=== PATIENT | female | born 1955 | race Hispanic/Latino ===

== ENCOUNTER → 2022-06-20 | Outpatient (CLI) | payer MEDICARE | END | disposition home or self-care (01) | LOC: SHCH 12:54 | PROVIDERS: ATTEND Internal Medicine Cardiovascular Disease | DX: I51.7 Cardiomegaly (principal); I48.0 Paroxysmal atrial fibrillation; I48.91 Unspecified atrial fibrillation | CPT/HCPCS: 93306 ==

== ENCOUNTER 2022-08-13 07:09 | Day surgery (SDC) | payer MEDICARE ==
[2022-08-11 10:11] LABS: HEMATOCRIT 35.8 % (36-48); MEAN CORPUSCULAR HEMOGLOBIN 31.5 pg (27.0-33.0); MEAN CORPUSCULAR HGB CONC 32.7 g/dL (32.0-36.0); MEAN CORPUSCULAR VOLUME 96.5 fL (79-99); RED BLOOD CELL COUNT(AUTO) 3.71 MIL/uL (4.00-5.50); RED CELL DISTRIBUTION WIDTH 12.6 % (11.0-15.5); WHITE BLOOD COUNT (AUTO) 7.4 K/uL (4.8-10.8)
[2022-08-11 10:18] LABS: CREATININE 0.6 mg/dL (0.5-1.5); POTASSIUM 3.6 mmol/L (3.5-5.1)
[2022-08-12 12:26] VITALS: BP 162/91
[~2022-08-13] VITALS: Ht 157.5 cm; Wt 99.5 kg
[~2022-08-13 07:09] MED LIST: AMIO200T68 PO; ATOR10TA69 PO; HYDR25TA PO; LEVO88CA4 PO; RIVA20TA PO
[2022-08-13 07:35] VITALS: BP 134/78
[2022-08-13] MEDS ORDERED: 0.9%NACL 1000ML 1,000 ML IV ONE (07:37)
[2022-08-13] MEDS ORDERED: IPRATROPIUM/ALBUTEROL SULFATE 3 ML SOLUTION IH SCH (09:00)
[2022-08-13] MEDS ORDERED: PROPOFOL 10 MG/ML 20ML VIAL IV ONE (09:03)
[2022-08-13] MEDS ORDERED: METO100T14 PO (13:28)
[2022-08-18] MEDS ORDERED: PRED20TA3 PO (17:57)
[2022-08-18] MEDS ORDERED: ALBUHFA IH (17:57)
[2022-08-18] MEDS ORDERED: FLUT1BLS IH (17:57)
[2022-08-18] MEDS ORDERED: AMOX-426 PO (17:57)
[2022-08-18] MEDS ORDERED: BENZ-39 PO (18:17)
[2022-08-18] MEDS ORDERED: GUAI600T50 PO (18:17)
== END 2022-08-13 10:30 | disposition home or self-care (01) ==
LOC: CLH 07:09 → DAH 07:09 → CLH 10:30
PROVIDERS: ATTEND Internal Medicine Cardiovascular Disease
DX: I48.11 Longstanding persistent atrial fibrillation (principal); Z20.822 Contact with and (suspected) exposure to COVID-19; I10 Essential (primary) hypertension; E03.9 Hypothyroidism, unspecified; E66.01 Morbid (severe) obesity due to excess calories; I87.2 Venous insufficiency (chronic) (peripheral); E78.5 Hyperlipidemia, unspecified; M19.90 Unspecified osteoarthritis, unspecified site; Z79.890 Hormone replacement therapy; Z79.899 Other long term (current) drug therapy; Z90.710 Acquired absence of both cervix and uterus; Z82.49 Family history of ischemic heart disease and other diseases of the circulatory system; Z79.01 Long term (current) use of anticoagulants; Z68.41 Body mass index [BMI] 40.0-44.9, adult
CPT/HCPCS: 80048; 85027; 87426; 36415; 92960; 93005 ×2; 94640; A4223 ×3; J7030 ×2; J2704; A4215; A7002; A4222; A4221; A4663; A4216; A4606

== ENCOUNTER → 2022-11-19 | Outpatient (CLI) | payer MEDICARE ==
[~2022-11-19] MED LIST changes: +ALBUHFA IH; -AMIO200T68 PO; +ASCO500T20 PO; +BIOT5000 PO; +CHOL500051 PO; +LORA10TA7 PO; +METO100T14 PO; +TRAM50TA4 PO
== END | disposition home or self-care (01) ==
LOC: SHCH 08:39
PROVIDERS: ATTEND Internal Medicine Cardiovascular Disease
DX: I87.2 Venous insufficiency (chronic) (peripheral) (principal)
CPT/HCPCS: 93970

== ENCOUNTER → 2022-12-10 | Outpatient (CLI) | payer MEDICARE ==
[2022-12-10 16:24] LABS: BASOPHILS % (AUTO) 0.6 % (0.0-5.0); EOSINOPHILS % (AUTO) 5.2 % (0.0-8.0); HEMATOCRIT 35.6 % (36-48); LYMPHOCYTES % (AUTO) 22.1 % (21.0-51.0); MEAN CORPUSCULAR HEMOGLOBIN 31.8 pg (27.0-33.0); MEAN CORPUSCULAR HGB CONC 32.3 g/dL (32.0-36.0); MEAN CORPUSCULAR VOLUME 98.3 fL (79-99); MONOCYTES % (AUTO) 9.3 % (3.0-13.0); NEUTROPHILS % (AUTO) 62.4 % (40.0-77.0); PLATELET COUNT (AUTO) 202 K/uL (130-400); RED BLOOD CELL COUNT(AUTO) 3.62 MIL/uL (4.00-5.50); RED CELL DISTRIBUTION WIDTH 13.4 % (11.0-15.5); WHITE BLOOD COUNT (AUTO) 5.4 K/uL (4.8-10.8)
[2022-12-10 16:36] LABS: INR 1.23 (0.85-1.15); PROTHROMBIN TIME 13.3 SEC (9.6-11.6)
[2022-12-10 16:38] LABS: PARTIAL THROMBOPLASTIN TIME 36.2 SEC (26.3-35.5)
[2022-12-10 16:40] LABS: CREATININE 0.8 mg/dL (0.5-1.5); POTASSIUM 4.6 mmol/L (3.5-5.1)
== END | disposition home or self-care (01) ==
LOC: LAB 13:10
PROVIDERS: ATTEND Internal Medicine Cardiovascular Disease
DX: I87.2 Venous insufficiency (chronic) (peripheral) (principal); I10 Essential (primary) hypertension; I48.21 Permanent atrial fibrillation; E78.5 Hyperlipidemia, unspecified; E66.01 Morbid (severe) obesity due to excess calories; Z68.41 Body mass index [BMI] 40.0-44.9, adult; Z79.01 Long term (current) use of anticoagulants
CPT/HCPCS: 36415; 80048; 85025; 85610; 85730

== ENCOUNTER → 2023-03-02 | Outpatient (CLI) | payer MEDICARE | END | disposition home or self-care (01) | LOC: SHCH 12:26 | PROVIDERS: ATTEND Internal Medicine Cardiovascular Disease | DX: I87.2 Venous insufficiency (chronic) (peripheral) (principal); Z98.890 Other specified postprocedural states | CPT/HCPCS: 93971 ==

== ENCOUNTER → 2023-03-23 | Outpatient (CLI) | payer MEDICARE | END | disposition home or self-care (01) | LOC: SHCH 09:13 | PROVIDERS: ATTEND Internal Medicine Cardiovascular Disease | DX: I87.2 Venous insufficiency (chronic) (peripheral) (principal); Z98.890 Other specified postprocedural states | CPT/HCPCS: 93971 ==

== ENCOUNTER → 2023-06-02 | Outpatient (CLI) | payer MEDICARE ==
[~2023-06-02] MED LIST changes: +REGADENOSON 0.4 MG/5 ML PF SYG IVP ONE
== END | disposition home or self-care (01) ==
LOC: SHCH 07:55
PROVIDERS: ATTEND Internal Medicine Cardiovascular Disease
DX: R06.02 Shortness of breath (principal); I48.91 Unspecified atrial fibrillation
CPT/HCPCS: 78452; 96374; 93017; J2785; A9500 ×2

== ENCOUNTER 2023-12-07 10:46 | Emergency (ER) | payer MEDICARE ==
[~2023-12-07] VITALS: Ht 152.4 cm; Wt 103.0 kg
[~2023-12-07 10:46] MED LIST changes: -BIOT5000 PO; +DIGO0.12 PO; +FAMO20TA8 PO; +POTA20PA32 PO; +PRED10TA23 PO; +RANO500T6 PO; -REGADENOSON 0.4 MG/5 ML PF SYG IVP ONE
[2023-12-07 10:48] VITALS: BP 107/62; PULSE 92; RESP 16
[2023-12-07] MEDS: FAMOTIDINE 20MG TAB PO ONE (11:15)
[2023-12-07] MEDS: DEXAMETHASONE SOD PHOSPHATE 4 MG/ML 1ML VIAL IM ONE (11:15)
[2023-12-07] MEDS: DIPHENHYDRAMINE HCL 25 MG CAPSULE PO ONE (11:15)
[2023-12-07] MEDS ORDERED: METH4TAB3 PO (11:53)
[2023-12-07] MEDS ORDERED: DIPH50CA37 PO (11:53)
== END 2023-12-07 12:12 | disposition home or self-care (01) ==
LOC: EDH 10:46
DX: T78.40XA Allergy, unspecified, initial encounter (principal); R21 Rash and other nonspecific skin eruption; E78.00 Pure hypercholesterolemia, unspecified; I11.0 Hypertensive heart disease with heart failure; I50.9 Heart failure, unspecified; M19.90 Unspecified osteoarthritis, unspecified site; Z79.52 Long term (current) use of systemic steroids; Z79.890 Hormone replacement therapy; Z79.899 Other long term (current) drug therapy; Z90.710 Acquired absence of both cervix and uterus
CPT/HCPCS: 99283; 96372; J1100; Q0163

== ENCOUNTER → 2023-12-22 | Outpatient (CLI) | payer MEDICARE ==
[~2023-12-22] MED LIST changes: +DIPH50CA37 PO; +METH4TAB3 PO
[2023-12-22 16:36] LABS: ALBUMIN 3.2 g/dL (3.5-5.0); BILIRUBIN,TOTAL 0.9 mg/dL (0.2-1.0); CREATININE 0.6 mg/dL (0.5-1.5); DIGOXIN 0.98 ng/mL (0.50-2.00); TOTAL PROTEIN, SERUM 6.6 g/dL (6.0-8.3)
== END | disposition home or self-care (01) ==
LOC: LAB 12:47
PROVIDERS: ATTEND Internal Medicine Cardiovascular Disease
DX: E78.5 Hyperlipidemia, unspecified (principal); I48.0 Paroxysmal atrial fibrillation; I20.0 Unstable angina
CPT/HCPCS: 36415; 80053; 80061; 80162

== ENCOUNTER 2024-01-05 08:48 | Day surgery (SDC) | payer MEDICARE ==
[2024-01-05] VITALS (12 sets, daily range): BP systolic 98–136; BP diastolic 60–89; PULSE 80–93; RESP 18–24
[~2024-01-05] VITALS: Ht 152.4 cm; Wt 103.0 kg
[~2024-01-05 08:48] MED LIST changes: -ALBUHFA IH; +BIOT5000 PO; +DIGO125T71 PO; -DIPH50CA37 PO; -FAMO20TA8 PO; +FLUT1BLS3 IH; +FURO20TA4 PO; -HYDR25TA PO; -METH4TAB3 PO; +POTA-79 PO; -POTA20PA32 PO; -PRED10TA23 PO; +RANO500T2 PO
[2024-01-05] MEDS: 0.9%NACL 1000ML 1,000 ML IV ONE (10:06)
[2024-01-05] MEDS ORDERED: LIDOCAINE HCL 1% 20 ML VIAL ONE (11:02)
[2024-01-05] MEDS ORDERED: PROPOFOL 10 MG/ML 20ML VIAL IV ONE ×2 (11:02)
== END 2024-01-05 13:00 | disposition home or self-care (01) ==
LOC: DAH 08:48 → ENDO 08:48
PROVIDERS: ATTEND Internal Medicine Gastroenterology
DX: Z09 Encounter for follow-up examination after completed treatment for conditions other than malignant neoplasm (principal); Z13.810 Encounter for screening for upper gastrointestinal disorder; R10.13 Epigastric pain; K74.69 Other cirrhosis of liver; I85.10 Secondary esophageal varices without bleeding; K57.30 Diverticulosis of large intestine without perforation or abscess without bleeding; K31.89 Other diseases of stomach and duodenum; K64.1 Second degree hemorrhoids; D64.9 Anemia, unspecified; K64.4 Residual hemorrhoidal skin tags; K56.2 Volvulus; K63.89 Other specified diseases of intestine; K29.50 Unspecified chronic gastritis without bleeding; K80.20 Calculus of gallbladder without cholecystitis without obstruction; I10 Essential (primary) hypertension; E11.9 Type 2 diabetes mellitus without complications; E66.9 Obesity, unspecified; M19.90 Unspecified osteoarthritis, unspecified site; Z79.01 Long term (current) use of anticoagulants; Z79.899 Other long term (current) drug therapy; Z86.010 Personal history of colon polyps; Z68.41 Body mass index [BMI] 40.0-44.9, adult
CPT/HCPCS: 43239; 45378; J7030 ×2; J2704 ×2; A4620; A4215 ×2; A4223; A7002; A4222; A4221; A4663; A4606; J3490

== ENCOUNTER → 2024-05-19 | Outpatient (CLI) | payer MEDICARE ==
[~2024-05-19] MED LIST changes: +POTA-364 PO; -POTA-79 PO
== END | disposition home or self-care (01) ==
LOC: SHCH 09:17
PROVIDERS: ATTEND Internal Medicine Cardiovascular Disease
DX: I87.2 Venous insufficiency (chronic) (peripheral) (principal); I87.1 Compression of vein; I73.9 Peripheral vascular disease, unspecified
CPT/HCPCS: 93925; 93970

== ENCOUNTER → 2024-07-26 | Outpatient (CLI) | payer MEDICARE ==
[2024-07-26 12:01] LABS: BASOPHILS # (AUTO) 0.04 K/uL (0.00-0.20); BASOPHILS % (AUTO) 0.6 % (0.0-5.0); EOSINOPHILS # (AUTO) 0.33 K/uL (0.00-0.70); EOSINOPHILS % (AUTO) 4.7 % (0.0-8.0); HEMATOCRIT 36.9 % (36-48); IMMATURE GRANULOCYTE ABSOLUTE 0.08 K/uL (0-1); LYMPHOCYTES # (AUTO) 1.4 K/uL (1.0-4.8); LYMPHOCYTES % (AUTO) 19.2 % (21.0-51.0); MEAN CORPUSCULAR HGB CONC 32.8 g/dL (32.0-36.0); MEAN CORPUSCULAR VOLUME 97.6 fL (79-99); MONOCYTES # (AUTO) 0.6 K/uL (0.1-1.0); MONOCYTES % (AUTO) 7.8 % (3.0-13.0); NEUTROPHILS # (AUTO) 4.7 K/uL (1.8-7.7); NEUTROPHILS % (AUTO) 66.6 % (40.0-77.0); PLATELET COUNT (AUTO) 218 K/uL (130-400); RED BLOOD CELL COUNT(AUTO) 3.78 MIL/uL (4.00-5.50); RED CELL DISTRIBUTION WIDTH 13.1 % (11.0-15.5)
[2024-07-26 12:07] LABS: CREATININE 0.7 mg/dL (0.5-1.0); POTASSIUM 4.1 mmol/L (3.5-5.1)
[2024-07-26 12:18] LABS: INR 1.37 (0.85-1.15); PROTHROMBIN TIME 14.5 SEC (9.6-11.6)
[2024-07-26 12:20] LABS: PARTIAL THROMBOPLASTIN TIME 38.5 SEC (26.3-35.5)
== END | disposition home or self-care (01) ==
LOC: LAB 10:32
PROVIDERS: ATTEND Internal Medicine Cardiovascular Disease
DX: Z01.812 Encounter for preprocedural laboratory examination (principal); I87.1 Compression of vein; I87.2 Venous insufficiency (chronic) (peripheral); I50.9 Heart failure, unspecified
CPT/HCPCS: 36415; 80048; 85025; 85610; 85730

== ENCOUNTER → 2024-07-28 | Outpatient (CLI) | payer MEDICARE | END | disposition home or self-care (01) | LOC: RAH 12:28 | PROVIDERS: ATTEND Family Medicine | DX: J44.9 Chronic obstructive pulmonary disease, unspecified (principal); J84.89 Other specified interstitial pulmonary diseases; I51.7 Cardiomegaly | CPT/HCPCS: 71046 ==

== ENCOUNTER → 2024-10-25 | Outpatient (CLI) | payer MEDICARE ==
[2024-10-25 16:48] LABS: BASOPHILS # (AUTO) 0.03 K/uL (0.00-0.20); BASOPHILS % (AUTO) 0.3 % (0.0-5.0); EOSINOPHILS # (AUTO) 0.18 K/uL (0.00-0.70); EOSINOPHILS % (AUTO) 2.1 % (0.0-8.0); HEMATOCRIT 38.2 % (36-48); IMMATURE GRANULOCYTE ABSOLUTE 0.06 K/uL (0-1); LYMPHOCYTES # (AUTO) 1.6 K/uL (1.0-4.8); LYMPHOCYTES % (AUTO) 18.7 % (21.0-51.0); MEAN CORPUSCULAR HEMOGLOBIN 32.6 pg (27.0-33.0); MEAN CORPUSCULAR HGB CONC 32.5 g/dL (32.0-36.0); MEAN CORPUSCULAR VOLUME 100.5 fL (79-99); MONOCYTES # (AUTO) 0.5 K/uL (0.1-1.0); MONOCYTES % (AUTO) 6.1 % (3.0-13.0); NEUTROPHILS # (AUTO) 6.3 K/uL (1.8-7.7); NEUTROPHILS % (AUTO) 72.1 % (40.0-77.0); PLATELET COUNT (AUTO) 192 K/uL (130-400); RED CELL DISTRIBUTION WIDTH 13.1 % (11.0-15.5); WHITE BLOOD COUNT (AUTO) 8.8 K/uL (4.8-10.8)
[2024-10-25 17:03] LABS: INR 1.17 (0.85-1.15); PROTHROMBIN TIME 12.9 SEC (9.6-11.6)
[2024-10-25 17:04] LABS: PARTIAL THROMBOPLASTIN TIME 33.1 SEC (26.3-35.5)
[2024-10-25 17:11] LABS: CREATININE 0.7 mg/dL (0.5-1.0); POTASSIUM 4.5 mmol/L (3.5-5.1)
== END | disposition home or self-care (01) ==
LOC: LAB 11:58
PROVIDERS: ATTEND Internal Medicine Cardiovascular Disease
DX: Z01.812 Encounter for preprocedural laboratory examination (principal); I87.1 Compression of vein; I87.2 Venous insufficiency (chronic) (peripheral); I48.91 Unspecified atrial fibrillation
CPT/HCPCS: 36415; 80048; 85025; 85610; 85730

== ENCOUNTER → 2025-02-08 | Outpatient (CLI) | payer MEDICARE ==
[~2025-02-08] MED LIST changes: -LEVO88CA4 PO; +LEVO88CA5 PO
== END | disposition home or self-care (01) ==
LOC: SHCH 12:17
PROVIDERS: ATTEND Internal Medicine Cardiovascular Disease
DX: I87.2 Venous insufficiency (chronic) (peripheral) (principal); I87.1 Compression of vein
CPT/HCPCS: 93970

== ENCOUNTER → 2025-05-24 | Outpatient (CLI) | payer OTHER, MEDICAID | END | disposition home or self-care (01) | LOC: RAH 07:59 | PROVIDERS: ATTEND Family Medicine | DX: Z12.31 Encounter for screening mammogram for malignant neoplasm of breast (principal) | CPT/HCPCS: 77067 ==

== ENCOUNTER 2025-08-22 08:12 | Day surgery (SDC) | payer OTHER, MEDICAID ==
[~2025-08-22] VITALS: Ht 152.4 cm; Wt 98.0 kg
[2025-08-22] VITALS (9 sets, daily range): BP systolic 115–146; BP diastolic 64–94; PULSE 61–88; RESP 14–18; TEMP 97.2–98.1
[2025-08-22] MEDS ORDERED: METO100T14 PO (08:37)
[2025-08-22] MEDS ORDERED: ALBU18HF7 IH (08:37)
[2025-08-22] MEDS ORDERED: MONT-39 PO (08:43)
[2025-08-22] MEDS ORDERED: ERYT1OIN7 OU (08:43)
[2025-08-22] MEDS ORDERED: ESOM40CA66 PO (08:43)
[2025-08-22] MEDS ORDERED: TRAMADOL 50MG PO (08:43)
[2025-08-22] MEDS ORDERED: FAMO40TA7 PO (08:43)
[2025-08-22] MEDS: 0.9%NACL 1000ML 1,000 ML IV ONE (08:47)
[2025-08-22] MEDS ORDERED: LIDOCAINE HCL 1% 20 ML VIAL ONE (09:57)
--- NOTE | 2025-08-22 11:43 | NUR ---
Full and complete discharge instructions given to Patient and Family both verbally and in writing. Tolerated fluids and voided in bathroom. PIV removed with catheter tip intact. W/C to POV with Family to home.
== END 2025-08-22 11:30 | disposition home or self-care (01) ==
LOC: ENDO 08:12 → DAH 08:12 → ENDO 11:30
PROVIDERS: ATTEND Internal Medicine Gastroenterology
DX: R10.13 Epigastric pain (principal); K31.89 Other diseases of stomach and duodenum; K29.70 Gastritis, unspecified, without bleeding; K74.60 Unspecified cirrhosis of liver; I85.10 Secondary esophageal varices without bleeding; E78.00 Pure hypercholesterolemia, unspecified; M19.90 Unspecified osteoarthritis, unspecified site; I50.9 Heart failure, unspecified; I48.91 Unspecified atrial fibrillation; K76.9 Liver disease, unspecified; R93.3 Abnormal findings on diagnostic imaging of other parts of digestive tract; R93.2 Abnormal findings on diagnostic imaging of liver and biliary tract; K57.30 Diverticulosis of large intestine without perforation or abscess without bleeding; K59.04 Chronic idiopathic constipation; I11.0 Hypertensive heart disease with heart failure; E78.5 Hyperlipidemia, unspecified; E11.9 Type 2 diabetes mellitus without complications; R93.421 Abnormal radiologic findings on diagnostic imaging of right kidney; Z86.0100 Personal history of colon polyps, unspecified; Z90.710 Acquired absence of both cervix and uterus; Z79.01 Long term (current) use of anticoagulants; Z79.899 Other long term (current) drug therapy
CPT/HCPCS: 43239; J7030 ×2; J2704; A4620; A4215 ×2; A4223; A4657; A7002; A4222; A4221; A4663; A4606; J3490

== ENCOUNTER 2025-10-07 08:43 | Emergency (ER) | payer OTHER, MEDICAID ==
[~2025-10-07] VITALS: Ht 154.9 cm; Wt 97.1 kg
[~2025-10-07 08:43] MED LIST changes: +ALBU18HF7 IH; -ASCO500T20 PO; -BIOT5000 PO; -CHOL500051 PO; -DIGO0.12 PO; +ERYT1OIN7 OU; +ESOM40CA66 PO; +FAMO40TA7 PO; -LORA10TA7 PO; +MONT-39 PO; -POTA-364 PO; -RANO500T6 PO; -TRAM50TA4 PO; +TRAMADOL 50MG PO
--- NOTE | 2025-10-07 11:18 | HMCIMG ---
EXAM: CR right Humerus, 2 View. CLINICAL HISTORY: Injury COMPARISON: None provided. FINDINGS: BONES: No acute fracture or aggressive appearing osseous lesion. JOINTS: No dislocation. The joint spaces are normal. SOFT TISSUES: The soft tissues are unremarkable. IMPRESSION: No acute osseous abnormality. /[place]
--- NOTE | 2025-10-07 11:18 | HMCIMG ---
STUDY: CR Right Forearm, 2 Views HISTORY: Injury TECHNIQUE: Anteroposterior and lateral radiographs of the right forearm obtained. COMPARISON: None provided. FINDINGS: BONES: Radius and ulna are intact. No acute fracture or aggressive appearing osseous lesion identified. JOINTS: Elbow and wrist joint alignments are maintained. No dislocation. Joint spaces are preserved. SOFT TISSUES: Soft tissue swelling is noted along the dorsal aspect of the mid forearm. No soft tissue gas or radiopaque foreign body identified. IMPRESSION: * No acute fracture or dislocation of the right forearm. * Dorsal mid-forearm soft tissue swelling, likely post-traumatic in the given clinical context. /[place]
--- NOTE | 2025-10-07 11:20 | HMCIMG ---
EXAM: CR right Shoulder, 3 View. CLINICAL HISTORY: Injury COMPARISON: None provided. FINDINGS: BONES: No acute fracture or aggressive appearing osseous lesion. JOINTS: No dislocation. The joint spaces are normal. SOFT TISSUES: The soft tissues are unremarkable. IMPRESSION: No acute abnormality evident on examination of the right shoulder. No acute fracture or dislocation. /[place]
--- NOTE | 2025-10-07 11:30 | ERN ---
General Chief Complaint: Upper Extremity Pain/Injury Stated Complaint: RIGHT ARM PAIN Time Seen by MD: 09:15 History of Present Illness Initial Comments 69-year-old female came in for fall that happened couple of days ago in his has been having pain to her right shoulder along with the right forearm. Patient otherwise denies head trauma loss of consciousness able to ambulate without any concerns. Allergies: Coded Allergies: latex (Unverified Allergy, Unknown, 08/12/22) Home Meds Reported Medications Esomeprazole Magnesium (Esomeprazole Magnesium) 40 Mg Capsule.dr, 1 CAP PO DAILY for 30 Days, #30 CAP 0 Refills 08/22/25 Montelukast Sodium (Montelukast Sodium) 10 Mg Tablet, 1 TAB PO DAILY for 30 Days, #30 TAB 0 Refills 08/22/25 Famotidine (Famotidine) 40 Mg Tablet, 1 TAB PO DAILY for 30 Days, #30 TAB 0 Refills 08/22/25 [Tramadol 50MG] No Conflict Check, 1 TAB PO AM 08/22/25 Erythromycin Base (Erythromycin) 5 Mg/Gram (0.5 %) Oint...g., 1 APPL OU HS, GM 0 Refills apply 1 cm ribbon into the lower conjunctival sac 08/22/25 Albuterol Sulfate (Ventolin Hfa) 90 Mcg Hfa.aer.ad, 2 PUFF IH Q4HPRN PRN for wheezing for 30 Days, #18 GM 0 Refills 08/22/25 Metoprolol Tartrate (Metoprolol Tartrate) 100 Mg Tablet, 1.5 TAB PO BID for 30 Days, #60 TAB 0 Refills 08/22/25 Furosemide (Furosemide) 20 Mg Tablet, 20 MG PO BID, TAB 01/04/24 Digoxin (Digoxin) 125 Mcg (0.125 Mg) Tablet, 125 MCG PO AM, TAB 01/04/24 Ranolazine (RANEXA) 500 Mg Tab.er.12h, 500 MG PO BID, TAB 01/04/24 Fluticasone/Umeclidin/Vilanter (Trelegy Ellipta 100-62.5-25) 100-62.5 Blst.w.dev, 1 EACH IH DAILY 01/04/24 Atorvastatin Calcium (Atorvastatin Calcium) 10 Mg Tablet, 10 MG PO HS, TAB 08/12/22 Rivaroxaban (Xarelto) 20 Mg Tablet, 20 MG PO DAILYDINNER, TAB 08/12/22 Levothyroxine Sodium (Levothyroxine) 88 Mcg Capsule, 88 MCG PO DAILY, CAP 08/12/22 Past Medical History Past Medical History: Angina, Arthritis, Arrythmia, CHF, High Cholesterol, Heart Disease, Hypertension, Pneumonia Past Surgical History: Hysterectomy, Tonsillectomy Social History Social History: Negative Female( History) History: Not Applicable ROS Dictation Arm pain Physical Exam General Appearance: (+) no apparent distress, (+) apparent distress Orientation: (+) alert, (+) oriented x 3 Respiratory: (+) chest non-tender, (+) lungs clear Heart: (+) regular, (+) no gallop Vascular: (+) no edema, (+) normal peripheral pulse Gastrointestinal: (+) soft, (+) non-tender, (+) no organomegaly, (+) bowel sound present MDM MDM: Differential diagnosis: Rationale: Tests considered and ordered secondary to shared decision making include: Previous outside records reviewed: Old ER visits. Risk of complication and/or morbidity or mortality of patient management: None Medications-Per medication reconciliation Need for hospitalization: Patient does not meet criteria for hospitalization. Need for emergency major/minor surgery: No There are no social concerns with this patient. Prescription drug management Prescriptions will include symptomatic care Patient's prior external medical records from other ER visits were reviewed by me as indicated. Prior testing and results from previous visits were reviewed. Prior tests were taken into account with medical decision making and resource utilization, independent historian/historians were used to obtain complete medical history. I independently interpreted the test that were performed, results were reviewed by me and considered findings on radiology if ordered. Medical management and examination interpretation discussions were had by me with other qualified healthcare professionals as indicated for the patient's care. ED Course Orders Procedure Category Date Status Time Shoulder Comp 2+Vws Rt RAD 10/07/25 Resulted 09:26 Humerus 2+Vws Rt RAD 10/07/25 Resulted 09:26 Forearm 2vws Rt RAD 10/07/25 Resulted 09:26 Vital Signs Date Time Temp Pulse Resp B/P (MAP) Pulse Ox O2 Delivery O2 Flow Rate FiO2 10/07/25 10:30 98.8 70 20 138/90 97 Room Air* 0 21 10/07/25 08:44 97.9 75 16 122/76 98 Room Air DX & DISP Disposition: Discharge Departure Impression: Primary Impression: Fall Condition: Stable Referrals: АННА BAHENA MD (PCP) YUMIKO FERNANDEZ MD Oct 07, 2025 11:30
[2025-10-07 11:53] VITALS: BP 135/74; PULSE 78; RESP 20; TEMP 98.7; O2SAT 97
--- NOTE | 2025-10-07 11:54 | NUR ---
[place] WRAP APPLIED TO THE LEFT UPPER EXTREMITY.
== END 2025-10-07 11:55 | disposition home or self-care (01) ==
LOC: EDH 08:43
DX: M25.511 Pain in right shoulder (principal); E78.00 Pure hypercholesterolemia, unspecified; I11.0 Hypertensive heart disease with heart failure; M19.90 Unspecified osteoarthritis, unspecified site; Z79.899 Other long term (current) drug therapy; Z91.040 Latex allergy status; Z90.710 Acquired absence of both cervix and uterus; Z87.01 Personal history of pneumonia (recurrent); Z79.890 Hormone replacement therapy; Z90.89 Acquired absence of other organs
CPT/HCPCS: 73030; 73060; 73090; 99284